=== PATIENT | male | born 1960 | race Caucasian/White ===

== ENCOUNTER 2022-03-28 09:09 | Outpatient (CLI) | payer OTHER, SELFPAY | END 2022-03-28 09:10 | disposition home or self-care (01) | PROVIDERS: PCP Family Medicine; Visit Provider Surgery | DX: Z12.11 Encounter for screening for malignant neoplasm of colon (principal); K63.5 Polyp of colon; K57.30 Diverticulosis of large intestine without perforation or abscess without bleeding | CPT/HCPCS: 45385; 88305; J1200; J2250; J3010 ==

== ENCOUNTER 2023-04-03 08:04 | Outpatient (CLI) | payer OTHER, SELFPAY | END 2023-04-03 08:05 | disposition home or self-care (01) | PROVIDERS: PCP Family Medicine; Visit Provider Family Medicine | DX: Z00.00 Encounter for general adult medical examination without abnormal findings (principal); I10 Essential (primary) hypertension; R10.9 Unspecified abdominal pain; Z12.5 Encounter for screening for malignant neoplasm of prostate; Z13.6 Encounter for screening for cardiovascular disorders | CPT/HCPCS: 80061; 80076; 84153 ==

== ENCOUNTER 2023-06-17 09:15 | Outpatient (CLI) | payer OTHER, SELFPAY | END 2023-06-17 09:16 | disposition home or self-care (01) | LOC: NFLDREF 06-22 05:22 | PROVIDERS: PCP Family Medicine; Referring Provider Family Medicine; Visit Provider Family Medicine | DX: E78.5 Hyperlipidemia, unspecified (principal); Z79.899 Other long term (current) drug therapy | CPT/HCPCS: 80061; 80076 ==

== ENCOUNTER 2023-11-27 08:03 | Outpatient (CLI) | payer OTHER, SELFPAY | END 2023-11-27 08:04 | disposition home or self-care (01) | LOC: NFLDREF 11-28 08:35 | PROVIDERS: PCP Family Medicine; Referring Provider Family Medicine; Visit Provider Family Medicine | DX: E78.00 Pure hypercholesterolemia, unspecified (principal); Z12.5 Encounter for screening for malignant neoplasm of prostate; Z13.1 Encounter for screening for diabetes mellitus | CPT/HCPCS: 80053; 80061; G0103 ==

== ENCOUNTER 2024-03-26 08:07 | Outpatient (CLI) | payer OTHER, SELFPAY | END 2024-03-26 08:08 | disposition home or self-care (01) | PROVIDERS: PCP Family Medicine; Referring Provider Family Medicine; Visit Provider Family Medicine | DX: E78.00 Pure hypercholesterolemia, unspecified (principal); I10 Essential (primary) hypertension; R53.83 Other fatigue; I25.10 Atherosclerotic heart disease of native coronary artery without angina pectoris; W57.XXXA Bitten or stung by nonvenomous insect and other nonvenomous arthropods, initial encounter | CPT/HCPCS: 80061; 86618 ==

== ENCOUNTER 2024-07-01 07:55 | Outpatient (CLI) | payer OTHER, SELFPAY ==
--- OUTSIDE RECORDS SUMMARY | 2024-07-05 02:23 | XMS_ITS | Clinical Summary ---
Author Organization [facility] Address [place], [place] [address] Care Team Providers Care Research Intern Name Role Phone Pcp, No Primary Care Provider Unavailabl e Allergies No known active allergies Medications aspirin chewable 81 mg chewable tabletIndication s:Elevated BP,Vertigo Take 1 tablet by mouth once daily with a meal. 50 tablet 09/10/2015 6:12 PM DIE MAKER TRIM 6 Active losartan (COZAAR) 100 mg tablet Take 100 mg by mouth once daily. Active rosuvastatin (CRESTOR) 20 mg tablet Take 20 mg by mouth once daily. 3 Active amLODIPine (NORVASC) 5 mg tablet Take 5 mg by mouth once daily. 3 Active fluticasone (50 mcg per actuation) nasal solution (FLONASE)Indicat ions:Nasal congestion Inhale 2 Sprays in both nostrils once daily. 16 g 4 Active benzonatate (TESSALON) 200 mg capsuleIndicatio ns:Cough, unspecified type Take 1 Capsule (200 mg) by mouth 3 times daily if needed for Cough. 21 Capsule 4 Active codeine-guaiFENe sin 10-100 mg/5 mL liquidIndication s:Cough, unspecified type Take 5 mL by mouth every 4 hours if needed for Cough. Max dose 60 mL per 24 hrs. 120 mL 4 Active doxycycline monohydrate 100 mg capsuleIndicatio ns:Acute sinusitis with symptoms > 10 days,Acute bronchitis with symptoms > 10 days Take 1 Capsule (100 mg) by mouth two times daily for 10 days. 20 Capsule 4 07/13/20 24 Active Active Problems Problem Noted Date Diagnosed Date Vestibular neuronitis, unspecified ear 6 Vertigo 09/07/2015 Elevated BP 09/07/2015 Leukocytosis 09/07/2015 Encounters Date Type Department Care Team Description 07/03/2024 9:00 AM DIE MAKER TRIM Office Visit [facility] [address] [address] Garima Barrett MD Sinus Problem (Patient presents to ambulatory urgent care today with C/O having sinus congestion, post nasal drip and cough. Onset a few days after his sire throat./) 07/03/2024 Travel 06/26/2024 Telephone [facility] [address] [address] Mariam Ernandez NP Results 06/25/2024 9:25 AM DIE MAKER TRIM Office Visit [facility] [address] [address] Miguel Genao, MEGAN Throat Problem 06/25/2024 Travel 06/22/2024 Telephone [facility] [address] [place] [phone] Chandan Boyd MD Questions 06/17/2024 10:00 AM DIE MAKER TRIM Office Visit [facility] [address] [place] [address] Chandan Boyd MD from Last 3 Months Immunizations Name Administration Dates Next Due DTaP 09/25/1999, 8,11/12/1996,09/14/1996,07/13 Hepatitis B (Adult) 10/30/2005,04/04/1997,1996,07/13/1996 Hib Conjugate, Unspecified 08/30/1997,11/12/1996 ,09/14/1996,07/13/1996 Inactivated Polio Vaccine 11/12/1996,09/14/1996, 07/13/1996 MMR 08/30/1997 Td (Age >=7 Years) 01/08/2009 Tdap 01/26/2010 Varicella Vaccine 05/22/1998 Family History Medical History Relation Name Comments Other Father pulm Relation Name Status Comments Father Social History Tobacco Use Types Packs/Day Years Used Date Smoking Tobacco: Never Passive Smoke Exposure: Never Smokeless Tobacco: Never Tobacco Cessation:Counseling Given: Not Answered Alcohol Use Standard Drinks/Week Comments Yes 5 (1 standard drink = 0.6 oz pur e alcohol) Social Connections Answer Date Recorded Do you often feel lonely or isolated from those around you? 0 12/28/2023 Financial Resource Strain Answer Date R ecorded Difficulty of Paying Living Expenses 3 12/28/2023 Difficulty of Paying Living Expenses Not on file 12/28/2023 Food Insecurity Answer Date Recorded Do you worry your food will run out before you are able to buy more? 1 12/28/2023 Transportation Needs Answer Date Record ed Does lack of transportation keep you from medica l appointments? 1 12/28/2023 Does lack of transportation keep you from work, meetings or getting things that you need? 1 12/28/2023 Housing Stability Answer Date Recorded What is your housing situation today? 1 12/28/2023 Sex and Gender Information Value Date Recorded Sex Assigned at Not on file Legal Sex Male 11:55 AM CDT Gender Identity Not on file Sexual Orientation Not on file Obstetrics History Last Filed Vital Signs Vital Sign Reading Time Taken Comments Blood Pressure 136/78 07/03/2024 9:07 AM DIE MAKER TRIM Pulse 87 07/03/2024 9:07 AM DIE MAKER TRIM Temperature 36.6 C (97.9 F) 07/03/2024 9:07 AM DIE MAKER TRIM Respiratory Rate 16 07/03/2024 9:07 AM DIE MAKER TRIM Oxygen Saturation 97% 07/03/2024 9:07 AM DIE MAKER TRIM Inhaled Oxygen Concentration - - Weight 91.6 kg (202 lb) 07/03/2024 9:07 AM DIE MAKER TRIM Height 185.4 cm (6' 0.99) 04/23/2016 5:37 PM CD T with shoes Body Mass Index 26.66 04/23/2016 5:37 PM CDT Plan of Treatment Health Maintenance Due Date Last Done Comments HIV for age 15-65 1976 Hepatitis C screening for age 18-79 1979 Lipids for age 45-75 2006 Zoster (shingles) series for age 50+ (1 of 2) 2011 Depression screening for age 12+ 11/06/2016 11/07/2015 BMI (ht and wt on same day) for age 18+ 04/23/2017 04/23/2016, 11/07/2015, 09/15/2015, Additional history exists Tetanus booster 01/27/2020 01/26/2010, 01/08/2009 Colonoscopy through age 75 05/28/202105/28 ([facility] COVID-19 vaccine series (2023- season) 2024 07/02/2021, 11/28/2020, 11/07/2020 Influenza for age 50-64 03/28/2024 Tdap Completed 01/26/2010 Pneumococcal series for age 6-64 Aged Out No longer eligible based on patient's age to complete this topic Procedures Procedure Name Priority Date/Time Associated Diagnosis Comments THROAT RAPID STREP ONLY CLINIC Routine 06/25/2024 9:42 AM DIE MAKER TRIM Sore throat STREP A PCR Routine 06/25/2024 9:36 AM DIE MAKER TRIM Sore throat from Last 3 Months Results * THROAT RAPID STREP ONLY CLINIC (06/25/2024 9:42 AM DIE MAKER TRIM) POC, GROUP A STREP NOT DETECTED NOT DETECTED [facility] (Urgent Care) Comment: The [place] [employer] recommends that a throat culture be performed if a rapid group A streptococcus assay yields a negative result. [facility] recommends Streptococcus, Group A culture. Throat SPECIMEN FROM THROAT / Unknown 06/25/2024 9:42 AM DIE MAKER TRIM 06/25/2024 9:43 AM DIE MAKER TRIM us Miguel Genao NP MICROBIOLOGY Fin al Result [facility] [address] [place] [address], [facility] (Urgent Care) [address] [place] [address] * STREP A PCR (06/25/2024 9:36 AM DIE MAKER TRIM) GROUP A STREP Negative 06/25/2024 7:35 PM DIE MAKER TRIM [facility] Throat SPECIMEN FROM THROAT / Unknown Non-Blood / Unknown 06/25/2024 9:36 AM DIE MAKER TRIM 06/25/2024 9:40 AM DIE MAKER TRIM us Miguel Genao VENETIAN BLIND MACHINE OPERATOR MICROBIOLOGY Fin al Result [facility] [address] [place] [address], from Last 3 Months Insurance [facility] Advance Directives * Full Code (Latest Code Status on File) Date Activated Date Inactivated Comments 09/07/2015 10:46 PM 09/11/2015 4:14 PM Care Teams Research Intern Relationship Specialty Start Date End Date Pcp, No . PCP - General 06/16/23
--- OUTSIDE RECORDS SUMMARY | 2024-07-05 02:23 | XMS_ITS | Clinical Summary ---
Author Organization [facility] Address [address], [place] [address] Care Team Providers Care Jet Mechanic Name Role Phone Chandan Sánchez MD Primary Care Provider [phone] Source Comments You are receiving this document as you are listed as the primary care provider,follow-up provider, or the patient has been referred to you for consultation.This is in compliance with the Medicare and[facility] EHR Incentive Program,which states Providers who transition their patient to another setting of careor provider of care or refers their patient to another provider of care shouldprovide summary care record for each transition of care or referral. [facility] Allergies No known active allergies Medications Medication Sig Dispensed Refills Start Date End Date Status doxycycline hyclate (AKA VIBRA-TABS) 100 MG tablet Take 1 tablet by mouth every morning. LW Addl Instr:take with food but no calcium/dairy and full glass of water. 30 6 12/05/2008 Active Additional Information Patient not taking.Reported on 08/11/2018 Polyethylene Glycol 3350 (PEG 3350 OR) Take by mouth for 2 doses. Take as directed in brochure. 2000cc at 6PM evening before and 4-5 hrs before leaving home day of exam 4000 mL 0 05/01/2012 Active Additional Information Patient not taking.Reported on 08/11/2018 losartan (COZAAR) 50 MG tablet Take 50-100 mg by mouth daily. 01/08/2022 Active [id number] S (AKA GOLYTELY) 236 g SOLR 4 liter bottle Take by mouth. 02/27/2022 Active triamcinolone acetonide (KENALOG) 0.1 % cream Apply topically two times daily as needed. 01/08/2022 Active Active Problems Problem Noted Date Diagnosed Date Allergic rhinitis 01/01/2003 Overview (03/19/2017): Rhinitis Allergic NOS Immunizations Name Administration Dates Next Due DT Ped 09/25/1999 DTaP/Hib 08/30/1997, 7,09/14/1996,1995 HepB Adult (Engerix-B, 20+ y rs, 3 dose series) 04/04/1997,09/14/1996,07/13/1996 Influenza, Unspecified Formulation 06/28/1998, MMR 08/30/1997 OPV, Trivalent (Orimune or tOPV) 11/12/1996,08/28,07/13/1996 TDAP (ADACEL) 01/26/2010 Varicella 05/22/1998 Social History Tobacco Use Types Packs/Day Years Used Date Smoking Tobacco: Never Smokeless Tobacco: Never Alcohol Use Standard Drinks/Week Comments Yes 0 (1 standard drink = 0.6 oz pure alcohol) Alcoholic Drinks/day: Amount:1-2 drinks; Freq:2-3/week ; Sex and Gender Information Value Date Recorded Sex Assigned at Not on file Gender Identity Not on file Sexual Orientation Not on file Last Filed Vital Signs Vital Sign Reading Time Taken Comments Blood Pressure 144/103 07/03/2012 1:30 PM ELECTRICAL TESTER Pulse 81 07/03/2012 1:30 PM ELECTRICAL TESTER Temperature 36.4 C (97.5 F) 03/14/2006 12:49 PM CDT C: 36.4 C Respiratory Rate 16 07/03/2012 1:30 PM ELECTRICAL TESTER Oxygen Saturation 98% 07/03/2012 1:30 PM ELECTRICAL TESTER Inhaled Oxygen Concentration - - Weight 92.1 kg (203 lb) 02/28/2022 11:33 AM CDT Height 188 cm (6' 2) 02/28/2022 11:33 AM CDT Body Mass Index 26.06 02/28/2022 11:33 AM CDT Plan of Treatment Health Maintenance Due Date Last Done Comments Colon Cancer Screening Plan Due 1961 Hep C Screening (Preventive Services) 1961 HIV Screening (Preventive Services) 1977 Adult Preventive Visit 1979 PSA Screening Discussion 05/03/2013 05/03/2012, 11/2005 Cholesterol 05/03/2017 05/03/2012, 09/26, 10/30/2005 COVID-19 Vaccine ( season) 2024 07/02/2021, 11/28/2020, 11/07/2020 Influenza (#1) 2024 06/28/1998, 05/22/1998 DTaP/Tdap/Td (9 - Tdap) 08/10/2029 08/10/19, 01/26/2010, 01/08/2009, Additional history exists RSV (1 - 1-dose 75+ series) 2036 IPV (Polio) Aged Out 11/12/1996, 08/28, 07/13/1996 No longer eligible based on patient's age to complete this topic HepB Completed 04/04/1997, 08/28, 07/13/1996 Hib Aged Out 08/30/1997, 09/1997, 11/12/1996, Additional history exists No longer eligible based on patient's age to complete this topic Zoster/Shingles Completed 09/06/2021, 06/18/2021 HepA Aged Out No longer eligi ble based on patient's age to complete this topic MCV4 Aged Out No longer eligi ble based on patient's age to complete this topic Pneumococcal Aged Out No longer eligi ble based on patient's age to complete this topic Procedures Procedure Name Priority Date/Time Associated Diagnosis Comments PROSTATIC SPECIFIC ANTIGEN (DIAGNOSTIC F/U) Routine 05/03/2012 8:13 AM CDT Well adult exam LIPID PANEL & DIRECT LDL (IF NEEDED) Routine 05/03/2012 8:13 AM CDT Well adult exam from Last 3 Months or Most Recently Relevant to Health Maintenance Results * (ABNORMAL) Lipid Panel and Direct LDL(If Needed) (05/03/2012 8:13 AM CDT) Cholesterol 192 0 - 200 mg/dL HP CONVERSION Triglycerides 313(H) 0 - 149 mg/dL HP CONVERSION HDL Cholesterol 36(L) >39 mg/dL HP CONVERSION Cholesterol/HDL Ratio Screen 5.3 HP CONVERSION LDL Calculated 93 19 - 130 mg/dL HP CONVERSION Hours Fasting 12.0 HP CONVERSION 05/03/2012 8:13 AM CDT 05/03/2012 8:13 AM CDT Narrative HP CONVERSION - 05/03/2012 9:21 AM CDT Performed at [facility], [address] [place] [address] Bert Ma MD LAB_1 HP CONVERSION * Prostatic Specific Antigen (F/U) (05/03/2012 8:13 AM CDT) Pathologist [facility] Prostate Specific Antigen 0.8 0.0 - 4.0 ng/mL HP CONVERSION 05/03/2012 8:13 AM CDT 05/03/2012 3:11 PM CDT Bert Ma MD LAB_1 Performing Organization Address City/[facility]/ZIP Co de Phone Number HP CONVERSION from Last 3 Months or Most Recently Relevant to Health Maintenance Care Teams Jet Mechanic Relationship Specialty Start Date End Date Chandan Sán[place] [address] [place] [address] PCP - General Family Practice 08/11/18
== END 2024-07-01 07:56 | disposition home or self-care (01) ==
LOC: NFLDREF 07-05 02:21
PROVIDERS: PCP Family Medicine; Referring Provider Family Medicine; Visit Provider Family Medicine
DX: I25.10 Atherosclerotic heart disease of native coronary artery without angina pectoris (principal); E78.00 Pure hypercholesterolemia, unspecified; I10 Essential (primary) hypertension; R53.83 Other fatigue; Z12.5 Encounter for screening for malignant neoplasm of prostate; Z13.6 Encounter for screening for cardiovascular disorders
CPT/HCPCS: 80053; 80061; 83695; 84270; 84402; 84403; G0103

== ENCOUNTER 2025-03-22 08:25 | Outpatient (CLI) | payer OTHER, SELFPAY | END 2025-03-22 08:26 | disposition home or self-care (01) | LOC: NFLDREF 03-24 14:33 | PROVIDERS: PCP Family Medicine; Referring Provider Family Medicine; Visit Provider Family Medicine | DX: I10 Essential (primary) hypertension (principal); E78.00 Pure hypercholesterolemia, unspecified; R79.89 Other specified abnormal findings of blood chemistry; Z12.5 Encounter for screening for malignant neoplasm of prostate | CPT/HCPCS: 80053; 80061; 84270; 84402; 84403; G0103 ==

== ENCOUNTER 2025-04-07 08:39 | Outpatient (CLI) | payer OTHER, SELFPAY ==
--- NOTE | 2025-04-07 09:11 | P.ANES_ITS ---
Anesthesia Charges Start Date/Time Anesthesia Start Date: 04/07/25 Anesthesia Start Time: 09:15 Stop Date/Time Anesthesia Stop Date: 04/07/25 Anesthesia Stop Time: 09:38 Coding CPT Codes CPT Codes: KALINA LWR INTST NDSC NOS - [id number] ([id number]) P2 - PATIENT W/MILD SYST DISEASE, QK - HAND BULLDOZER 2-4 CNCRNT ANES PROC, QX - PLATE MILL HAND SVC W/ MD MED DIRECTION
--- NOTE | 2025-04-07 09:11 | W.ANESCHARGE ---
Anesthesia Charges Start Date/Time Anesthesia Start Date: 04/07/25 Anesthesia Start Time: 09:15 Stop Date/Time Anesthesia Stop Date: 04/07/25 Anesthesia Stop Time: 09:38 Coding CPT Codes CPT Codes: KALINA LWR INTST NDSC NOS - [id number] ([id number]) P2 - PATIENT W/MILD SYST DISEASE, QK - BOATBUILDER APPRENTICE WOOD 2-4 CNCRNT ANES PROC, QX - POWER BALLAST MACHINE OPERATOR SVC W/ MD MED DIRECTION
--- NOTE | 2025-04-07 09:44 | P.ANES_ITS ---
Anesthesia Charges Start Date/Time Anesthesia Start Date: 04/07/25 Anesthesia Start Time: 09:15 Stop Date/Time Anesthesia Stop Date: 04/07/25 Anesthesia Stop Time: 09:38 Coding CPT Codes CPT Codes: KALINA LWR INTST NDSC NOS - [id number] ([id number]) P2 - PATIENT W/MILD SYST DISEASE, QK - EXTRUSION DIE REPAIRER 2-4 CNCRNT ANES PROC, QX - CERTIFIED PESTICIDE APPLICATOR SVC W/ MD MED DIRECTION
--- NOTE | 2025-04-07 09:44 | W.ANESCHARGE ---
Anesthesia Charges Start Date/Time Anesthesia Start Date: 04/07/25 Anesthesia Start Time: 09:15 Stop Date/Time Anesthesia Stop Date: 04/07/25 Anesthesia Stop Time: 09:38 Coding CPT Codes CPT Codes: KALINA LWR INTST NDSC NOS - [id number] ([id number]) P2 - PATIENT W/MILD SYST DISEASE, QK - EDUCATION AND DEVELOPMENT MANAGER 2-4 CNCRNT ANES PROC, QX - ELECTRONIC EQUIPMENT TRADES WORKER SVC W/ MD MED DIRECTION
== END 2025-04-07 08:40 | disposition home or self-care (01) ==
LOC: OP CLINIC 08:40
PROVIDERS: PCP Family Medicine; Visit Provider Internal Medicine
DX: Z12.11 Encounter for screening for malignant neoplasm of colon (principal); Z86.0100 Personal history of colon polyps, unspecified; D12.5 Benign neoplasm of sigmoid colon
CPT/HCPCS: 00811; 00812; 45380; 88305; J2704